=== PATIENT | male | born 1965 | race Caucasian/White ===

== ENCOUNTER → 2017-02-14 | Day surgery (SDC) | payer OTHER ==
[~2017-02-14] VITALS: Ht 182.9 cm; Wt 86.0 kg
[~2017-02-14] MED LIST: 0.9% Sodium Chloride 1,000 ML IV PRN; ASPI-973 PO; ATOR10TA66 PO; LISI-567 PO; Lactated Ringer's 1,000 ML IV ONE; OMEP20CA11 PO; SERT20OR6 PO; Sodium Chloride LOK Flush 10 mL Syringe IV PRN; fentaNYL-PF 50 mCg/mL 2 mL Inj IVPUSH PRN
[2017-02-14 08:19] VITALS: BP 149/87; PULSE 114; RESP 16; O2SAT 99
[2017-02-14 09:09] VITALS: BP 151/90; PULSE 105; RESP 14; O2SAT 97
[2017-02-14 09:18] VITALS: BP 117/72; PULSE 95; RESP 14; O2SAT 96
[2017-02-14 09:27] VITALS: BP 130/82; PULSE 102; RESP 14; O2SAT 98
--- NOTE | 2017-02-14 10:19 | ENDO ---
[address] [address] ENDOSCOPY PROCEDURE PATIENT: ELIANA EGAN : 1965 MR#: [id number] ADMIT: 02/14/2017 JOB ID: [id number] DATE: 02/14/2017 PRIMARY PROVIDER: Harley Rodriguez MD PROCEDURE: Esophagogastroduodenoscopy with biopsy. 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 He reports for surveillance. EQUIPMENT: [id number] SEDATION: 1. Versed 10 mg. 2. Fentanyl 200 mcg. COMPLICATIONS: None identified. PROCEDURE INFORMATION: After the risks and benefits were explained, written and verbal informed consent was obtained. The patient was brought into the endoscopy suite and placed in left lateral decubitus position. Sedation was achieved as above. The scope was introduced in the mouth through the bite block and advanced to the second portion of the duodenum. The scope was slowly withdrawn to carefully examine the mucosa for any defects or lesions. Retroflexed views were accomplished in the stomach. The stomach was decompressed. The scope removed from the patient who tolerated the procedure well. FINDINGS: 1. Duodenum: This appeared visually normal from the bulb through to the second portion. 2. Stomach: No outlet obstruction. No ulcers. No mass lesions. Retroflexed views were unremarkable. There were several scattered medium-sized polyps throughout as before. One of these was sampled again for histopathologic analysis. These all appeared benign. 3. Esophagus: The squamocolumnar junction generally correlated with the top of the gastric folds. I did not see anything that looked obviously like Epperson's. There was a subtle extension of the salmon-colored mucosa into the tubular esophagus in the 11 o'clock location. I targeted this for a biopsy and submitted this for histopathology, labeled it as GE junction. No acute erosive changes. No strictures. No mass lesions. There was subtle hiatal hernia present, but the remainder of the esophagus was unremarkable. ENDOSCOPIC DIAGNOSES: 1. Subtle sliding hiatal hernia. 2. Slightly irregular [id number]. 3. Gastric polyps. RECOMMENDATIONS: 1. Await histopathology. 2. Continue anti-reflux therapy. 3. Surveillance EGD will be contingent on the biopsy results. If Epperson's mucosa is identified then repeat EGD would be pursued in three years' time.
--- NOTE | 2017-02-15 14:29 | PATH ---
SURGICAL PATHOLOGY Attending Physician:Ella Okeefe CASE STATUS: Signed Out PATIENT NAME: ELIANA EGAN PID: [id number] : 1965 DATE COLLECTED:02/14/2017 21:15 SPECIMEN: 1: Stomach, Polyp, Biopsy 2: Esophagus, Biopsy CLINICAL HISTORY: 1). GASTRIC POLYP BIOPSY 2). GE JUNCTION BIOPSY FINAL DIAGNOSIS: 1. Gastric Polyp, Biopsy: Fundic gland polyp. Negative for dysplasia and malignancy. 2. GE Junction, Biopsy: Fragments of squamocolumnar junctional mucosa. Negative for intestinal metaplasia/Epperson's metaplasia, dysplasia, and malignancy. ICD10: K31.7 GROSS DESCRIPTION: The specimen is received in two formalin filled containers labeled with the patient's name. 1). The specimen is labeled "gastric polyp" and consists of a 0.3 x 0.2 x 0.2 CM portion of tissue which is entirely submitted in cassettes 1A. 2). The specimen is labeled " GEJ " and consists of a 0.2 x 0.2 x 0.2 CM portion of tissue which is entirely submitted in cassette 2A. 02/14/2017PA ICD-9 CODES: CPT CODES: 1: 08295 2: 82187 Electronically Signed Out Zulema Del Real MD [facility] Pathology [facility] [address], [place] [address] Technical component performed at [facility], [facility] [address], [place], [address]
== END | disposition home or self-care (01) ==
LOC: END 00:19
PROVIDERS: ATTEND Internal Medicine Gastroenterology
DX: K44.9 Diaphragmatic hernia without obstruction or gangrene (principal); K31.7 Polyp of stomach and duodenum; I10 Essential (primary) hypertension; E78.2 Mixed hyperlipidemia; R73.01 Impaired fasting glucose; F32.5 Major depressive disorder, single episode, in full remission; M77.11 Lateral epicondylitis, right elbow; Z79.82 Long term (current) use of aspirin; Z79.899 Other long term (current) drug therapy
CPT/HCPCS: 43239; G0500; J2250; J3010; J7030